=== PATIENT | female | born 1965 | race Asian ===

== ENCOUNTER 2024-09-30 11:00 | Outpatient (REF) | payer BC, SELFPAY ==
--- NOTE | ~2024-09-30 | XR_ITS ---
EXAMINATION: XR CHEST CLINICAL INFORMATION: R05.3 - Chronic cough COMPARISON: None available. TECHNIQUE: 2 views of the chest were obtained. FINDINGS: The cardiac, hilar, and mediastinal contours are normal. The lungs are clear bilaterally. There is no pneumothorax or pleural effusion. There is no focal osseous or soft tissue abnormality. XR/XR chest 2V IMPRESSION: No active pulmonary disease. Electronically signed by: Francisco Morrell MD 09/30/2024 01:12 PM EDT
[2024-09-30 11:58] LABS: MANUAL DIFF FLAG NO
[2024-09-30 13:23] LABS: Basophils Percent Auto 0.6 % (0-2); Eosinophils Absolute Auto 0.2 X10*3/uL (0.0-0.4); Eosinophils Percent Auto 2.4 % (0-4); Hematocrit 42.4 % (37.0-47.0); Hemoglobin 13.7 g/dl (12.0-16.0); Imm Gran Abs Auto 0.01 X10*3/uL (0.00-0.03); Imm Gran Pct Auto 0.1 % (0.0-0.4); Lymphocytes Absolute Auto 3.1 X10*3/uL (1.2-4.9); Lymphocytes Percent Auto 45.4 % (20-40); Mean Corpuscular HGB Conc 32.3 g/dl (31.0-35.0); Mean Corpuscular Hemoglobin 28.7 pg (27.0-33.0); Mean Corpuscular Volume 88.9 fL (80.0-98.0); Mean Platelet Volume 10.2 fL (9.4-12.3); Monocytes Absolute Auto 0.5 X10*3/uL (0.1-1.2); Neutrophils Percent Auto 44.5 % (45-73); Platelet Count 351 X10*3/uL (160-400); Red Blood Count 4.77 X10*6/uL (4.20-5.50); Red Cell Distribution Width 11.5 % (11.0-16.0); White Blood Count 6.8 X10*3/uL (4.8-10.8)
[2024-09-30 14:00] LABS: Erythrocyte Sedimentation Rate 12 MM/HR (0-20)
[2024-10-01 05:13] LABS: IgA 235 mg/dL (47-310); IgG 1453 mg/dL (600-1640); IgM 87 mg/dL (50-300)
[2024-10-01 20:53] LABS: Antibody to SS-A Antigen <1.0 NEG AI (<1.0 NEG); Antibody to SS-B Antigen 2.4 POS AI (<1.0 NEG)
[2024-10-01 22:54] LABS: Immunoglobulin E 186 kU/L (<OR=114)
[2024-10-07 12:28] LABS: Anti Nuclear Antibody Screen POSITIVE (NEGATIVE)
== END 2024-09-30 11:01 | disposition home or self-care (01) ==
LOC: HO.XRAY 11:00
PROVIDERS: PCP Family Medicine; Referring Provider Family Medicine; Visit Provider Hospitalist
DX: R05.3 Chronic cough (principal); J31.0 Chronic rhinitis; H60.549 Acute eczematoid otitis externa, unspecified ear
CPT/HCPCS: 36415; 71046; 82784; 82785; 85025; 85652; 86038; 86039; 86235

== ENCOUNTER 2024-09-30 11:00 | Outpatient (AMB) | payer BC, SELFPAY ==
--- NOTE | 2024-09-30 11:04 | MHC.OFFVIS ---
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 The patient is a 59 year woman with a known chronic cough for last few years. Patient states that the cough became more apparent when during the pandemic when she was trying not to cough. The cough at times is nonproductive but at times she does bring up some phlegm. She feels a fullness in the throat. Moderate severity. She does not really take any onjn-cbg-lahynch medications for it. She does not like to take medications unless she really has to. The patient did follow-up with ENT and she did undergo laryngoscopy and per report she was told that everything was okay and she did have some mucus but no medications for provided. The patient also follows up with Allergy and holistic therapy in [place] which she gets allergy shots. She knows she has allergies to animals and also some food allergies. On our evaluation she does have significant nasal congestion also has cobblestoning in the posterior pharynx. Likely upper airway cough syndrome. We did talk about nasal rinsing and nasal sprays to help with the symptoms and also using medications to stop the cough to help her break the cough cycle. In the meantime the patient does have what appears to be some eczema on both ears. She states that she was cleaning with very strong agent and she irritated them and now the itch a lot. It appears to be eczema. She does not have eczema elsewhere. On my evaluation the patient does not have any significant wheezing. Will go ahead and request blood work at this time to assess her immune system and also her allergy levels. The patient is willing to start nasal sprays and therapy and nasal rinsing. The patient should have an x-ray as well. Will follow up when she comes back from her trip abroad and if she has not issues prior to this she will call for an earlier assessment. [facility] Medical History (Updated 09/30/24 @ 21:10 by Maury Denton MD) Eczema of ear lobe Upper airway cough syndrome Chronic rhinitis Chronic cough Social History (Updated 09/30/24 @ 11:10 by Glo Diane CMA) Alcohol intake: current Alcohol intake frequency: holidays/special occasions only Patient Tobacco Use Status: Never used Tobacco Review of Systems Const Reports daytime sleepiness and Reports snoring Eyes Reports dry eyes ENT Reports nasal obstruction, Reports post nasal drip and Reports sore throat Card Denies chest pain Resp Reports cough, Reports snoring and Denies wheezing GI Reports no additional complaints Musc Reports no additional complaints Skin/Breast Reports rash Neuro Reports no additional complaints Gerson/Lymph Reports no additional complaints Aller/Immun Denies wheezing Physical Exam Vital Signs: Last Vital Signs Pulse 68 09/30/24 11:07 BP 124/68 09/30/24 11:07 Pulse Ox 100 09/30/24 11:07 Oxygen Delivery Method Room Air 09/30/24 11:07 BMI result Body Mass Index 23.6 Const General: comfortable HEENT Ears: Abnormal EAC present erythema and external ear abnormal Neck Neck: Yes supple Chest Chest palpation & inspection: normal inspection of the chest Resp Effort & Inspection: normal respiratory effort Auscultation: clear to auscultation bilaterally Cardio Heart sounds: S1 normal heart sound present and S2 normal heart sound present GI Palpation (GI): Soft to palpation Skin Rashes: rashes noted bilateral ear Extrem General: Yes no clubbing, cyanosis or edema Assessment & Plan Assessment & Plan (1) Chronic cough: Code(s): R05.3 - Chronic cough Category: Medical (2) Chronic rhinitis: Code(s): J31.0 - Chronic rhinitis Category: Medical (3) Upper airway cough syndrome: Code(s): R05.8 - Other specified cough Category: Medical (4) Eczema of ear lobe: Code(s): H60.549 - Acute eczematoid otitis externa, unspecified ear Category: Medical Plan Labs CXR sinus rinse (neilmed) Dymista nasal spray Tessalon pearls as needed for cough ear drops, needs to f/u with PCP F/U 2-3 months Orders: Orders Complete Blood Count Auto Diff Today J31.0 - Chronic rhinitis, R05.3 - Chronic cough, R05.8 - Other specified cough Immunoglobulin E Today J31.0 - Chronic rhinitis, R05.3 - Chronic cough, R05.8 - Other specified cough Immunoglobulins,IgG IgA IgM Today J31.0 - Chronic rhinitis, R05.3 - Chronic cough, R05.8 - Other specified cough Erythrocyte Sedimentation Rate Today J31.0 - Chronic rhinitis, R05.3 - Chronic cough, R05.8 - Other specified cough GAMALIEL Reflex Titer and Pattern Today J31.0 - Chronic rhinitis, R05.3 - Chronic cough, R05.8 - Other specified cough Sjogren's Antibodies Today J31.0 - Chronic rhinitis, R05.3 - Chronic cough, R05.8 - Other specified cough XR chest 2V Today R05.3 - Chronic cough Medications: New benzonatate 100 mg PO BID PRN 60 caps 2RF cough 30 days ciprofloxacin-dexamethasone 0.3-0.1 % 4 drps otic (ears) Q12H 7.5 mL 0RF 10 days azelastine-fluticasone 137-50 mcg/spray (Dymista) administer into each nostril 1 spray intranasal BID 23 grams 11RF Coding Level of Care Code New Pt Level 4 (10699) Diagnoses Chronic cough R05.3 Chronic rhinitis J31.0 Upper airway cough syndrome R05.8 Eczema of ear lobe H60.549 Time Spent (min) 40
[2024-09-30 11:07] VITALS: BP 124/68; PULSE 68; O2SAT 100; BMI 23.6
--- OUTSIDE RECORDS SUMMARY | 2024-09-30 12:13 | XMS_ITS | Continuity of Care Document ---
Author Organization [facility], Endocrinology, [facility] Address [address] [place] [address] Care Team Providers Care Solar Engineer Name Role Phone NEAL REYEZ Primary Care Provide r MADELYN MALDONADO Jewelry Engraver [phone] [facility] O rthopedist EFRAÍN NINO OTHER Assessment Encounter Date Assessment Date Assessment LastModified by Organization Details LastModified Time 09/25/2024 09/25/2024 59yo woman, with history of a kidney stones at age 27 and 35yy, kindly referred by Dr. Martin for osteoporosis at an early age, on alendronate since 03/02/23. 09/08/24 urine Ca 205mg/24h, urine cr 0.9g/24h, 05/28/24 pth 34, 25oh vit d 39, tsh 2, cr 0.7, Ca 9.6, Mg 1.7, 06/01/23 25oh vit d 23, 02/07/23 cr 0.7, Ca 9.2, tsh 2.1, 01/04/23 DXA described L1:4 t-score -3, z-score -1.9, right femoral neck t-score -2.8, which is consistent with osteoporosis. 24 hour urine calcium is normal. Normal Ca. Magnesium level is mildly low. Adding foods with more magnesium may help this. Almonds, spinach, cashews, and peanuts are excellent sources of magnesium. You can read more about foods that contain magnesium at the National Institutes of Health website (https://ods.od .nih.gov/factsh eets/Magnesium- HealthProfessio nal/#h3). If changing your diet is difficult, adding a supplement may help. TSH is normal and suggests you have adequate thyroid hormone. vitamin D stores are excellent. parathyroid hormone level is normal. I am impressed with her increased physical activity. Since 06/25, she she sees a show dog trainer and does weight bearing exercises, which she likes very much. She continues algaecal. She started cottage cheese once daily. I continue to recommend a medicine, which she declines. She does not trust Western medicine. She has a DXA scheduled 01/24/25 and will verify this. I would be happy to see her after this bone density to discuss further. [email or web address] Not available 09/25/2024 10:02:09 Plan of Treatment Reminders Order Date Submit Date Provider Last Modified By Organization Details Last Modified Time Details Appointments Follow Up, 2024 10:10A M eNri Pena MD Not available Not available Not available Mammog migue, Screen ing 2024 10:30A M [facility] Mammography Not available Not available Not available Lab vitami n D, 25-hyd elder, total, serum 2024 025 [facility], [address] [place] [address], [id number], 09/25/2024 10:02:43 renal functi on panel, serum 2024 025 [facility], [address] [place] [address], [id number], 09/25/2024 10:02:43 magnes ium, blood 2024 025 [facility], [address] [place] [address], [id number], 09/25/2024 10:02:43 Referral None record ed. Procedures None record ed. Surgeries None record ed. Imaging None record ed. Medication Orders None record ed. Patient TargetsNo targets recorded. Patient InstructionsNo instructions recorded. Reason for Referral None Reported. Problems Name Problem SNOMED Code Status Onset Date Resolution Date Notes Provider Name and Address Organization Details Recorded Time Otitis media 61573923 Completed 03/20/2013 Not Available [facility] 3 02:03:58 Abnormal findings on diagnost ic imaging of breast 290170144 Completed 06/29/2017 Removal Reason: benign Dara Drummond NP [address] [place] [address], [phone] , [facility] 8 09:20:55 Osteopor osis 35872267 Active 2023 Neal Elena MD [address] [place] [address], [phone] , [facility] 4 23:07:04 Family history of Cardiomy opathy 707711404 Active 2024 at risk cardiomy opathy due to Fhx mother has amyloido sism has hATTR gene; managed by [facility] cardiomy opathy clinc Neal Elena MD [address] [place] [address], [phone] , [facility] 5 10:29:46 Atopic dermatit is 31690766 Completed 200806/29/2017 Removal Reason: duplicat e Dara Drummond NP [address] [place] [address], [phone] , [facility] 8 09:20:41 Pain in throat 733478768 Completed 200703/20/2013 Not Available [facility] 3 02:03:09 Cough 48391868 Completed 200703/20/2013 Not Available [facility] 3 02:01:08 Common cold 06153845 Completed 200703/20/2013 Not Available [facility] 3 02:00:28 Nausea and vomiting 99496295 Completed 200603/20/2013 Not Available [facility] 3 02:03:06 Urinary tract infectio us disease 14276849 Completed 200703/20/2013 Not Available [facility] 3 02:01:58 Generali zed abdomina l pain 267754394 Completed 200503/20/2013 Not Available [facility] 3 02:02:06 Notes:family history of here ditary Transthyretin Amyloidosis Problem Notes None recorded. Procedures Surgical History Date Name Laterality Status Provider Name and Address Organization Details Recorded Time 08/28/19 21 Colonoscopy completed Neal Elena MD [address] [place] [address], [phone], [facility] 09/08/2020 15:59:10 05/22/19 21 prevention-cardio vascular risk reduction counseling completed Tash Lamar [facility] 05/22/2020 08:16:22 05/22/19 21 prevention-annual alcohol misuse screening completed Tash Lamar [facility] 05/22/2020 08:16:22 06/17/19 18 POC Strep Testing completed Lillian Longo CMA [facility] 06/17/2017 10:37:21 07/29/19 16 POC Strep Testing completed Florinda Echeverria [facility] 07/29/2015 11:27:19 Tonsillectomy completed Berta Terrell MD [address] [place] [address], [phone], [facility] 09/24/2013 11:00:28 Other (specify) completed Neal Elena MD [address] [place] [address], [phone], [facility] 05/22/2020 10:24:46 Imaging Results None recorded. Procedure Notes None recorded. Medical Equipment None Reported. Allergies Allergen ID Allergen Name Allergen Category Reaction Reaction Severity Criticality Documentation Date Start Date Code Code System Note Provider Name and Address Organization Details Recorded Time 903912 tree and shrub pollen environme nt,medica tion itching Not available Not available 01/03/2024 11767 UNK Neri Pena MD [address] [place], [place] [address] [place], [phone], [facility] 14:44:06 6931 procaine hydrochlo ride medicatio n other severe Not available 07/24/2008 92012 8 RxNorm SOB near synco pe Neal Elena MD [address] [place], [place] [address], [phone], [facility] 10/15/201 9 10:27:00 Medications Name Sig Start Date Stop Date Status Note LastModified by Organization Details LastModified Time prednison e 10 mg tablet 02/12 completed Not Available Not Available Not Available ofloxacin 0.3 % eye drops ADMINIST ER 1 DROP INTO RIGHT EYE FOUR TIMES DAILY. 01/02 completed Not Available Not Available Not Available benzonata te 200 mg capsule Take 1 capsule 3 times a day by oral route as needed for 10 days. 05/30 completed Not Available Not Available Not Available fluocinol one 0.01 % topical cream APPLY A THIN LAYER TO THE AFFECTED AREA(S) BY TOPICAL ROUTE TWICE A DAY NEEDED 02/21 completed Not Available Not Available Not Available alendrona te 70 mg tablet 70mg by mouth once weekly on an empty stomach first thing in the morning with at least 8 oz of water. Do not eat, drink, or take other medicati ons or suppleme nts for at least one-half hour after taking alendron ate. Stay upright (sitting or standing ) for at least 30 minutes after taking alendron ate to minimize the risk of reflux. Stop alendron ate if heartbur n, trouble swallowi ng, chest pain or reflux and then make an appointm ent to discuss this 01/02 completed Not started yet 06/01/23 as, never started this Not Available Not Available Not Available penicilli n V potassium 500 mg tablet TK 1 T PO Q 12 H FOR 10 DAYS active Not Available Not Available No t Available amoxicill in 500 mg tablet Take 2 tablets twice a day by oral route for 7 days. 04/27 completed Not Available Not Available Not Available lidocaine -prilocai ne 2.5 %-2.5 % topical cream 06/01 completed Not Available Not Available Not Available diphenhyd ramine-zi nc acetate 2 %-0.1 % topical cream Apply 1 applicat ion 3 times a day by topical route as needed for 30 days. 2013 active Not Available Not Available Not Avai lable alprazola m 0.25 mg tablet 06/01 completed Not Available Not Available Not Available prednisol one acetate 1 % eye drops,gerald pension ADMINIST ER 1 DROP INTO RIGHT EYE FOUR TIMES DAILY. 01/02 completed Not Available Not Available Not Available cephalexi n 500 mg capsule Take 1 capsule twice a day by oral route. 02/12 completed Not Available Not Available Not Available triamcino lone acetonide 0.1 % topical ointment 02/12 completed Not Available Not Available Not Available clotrimaz ole-betam ethasone 1 %-0.05 % topical cream PLEASE SEE ATTACHED FOR DETAILED DIRECTIO NS 01/02 completed Not Available Not Available Not Available lidocaine 5 % topical patch 02/12 completed Not Available Not Available Not Available metronida zole 0.75 % topical cream APPLY A THIN LAYER TO THE AFFECTED AREA(S) BY TOPICAL ROUTE 2 TIMES PER DAY IN THE MORNING AND EVENING 02/12 completed Not Available Not Available Not Available omeprazol e 20 mg capsule,d elayed release TAKE 1 CAPSULE BY MOUTH EVERY DAY FOR 14 DAYS 05/30 completed Not Available Not Available Not Available ibuprofen 600 mg tablet 02/12 completed Not Available Not Available Not Available doxycycli ne hyclate 100 mg tablet 06/01 completed Not Available Not Available Not Available ipratropi um bromide 21 mcg (0.03 %) nasal spray SPRAY 2 SPRAYS IN EACH NOSTRIL 1-3 TIMES A DAY 01/02 completed Not Available Not Available Not Available loratadin e 10 mg tablet TAKE 1 TABLET BY MOUTH EVERY DAY NEEDED active Not Available Not Available No t Available naproxen 500 mg tablet TAKE 1 TABLET BY MOUTH TWICE A DAY WITH MEALS FOR 7 DAYS 03/02 completed Not taking 03/02/23 JIMI Not Available Not Available Not Available clindamyc in 1 % lotion APPLY A THIN LAYER TO THE LEFT LOWER LEG LESION BY TOPICAL ROUTE 2 TIMES PER DAY FOR 2-3 WEEKS 09/25 completed Not Available Not Available Not Available cyclobenz aprine 5 mg tablet 02/12 completed Not Available Not Available Not Available multivita min active Not Available Not Available Not Available Plenvu 140 gram-9 gram-5.2 gram powder packs 05/28 completed Not Available Not Available Not Available Flucelvax Quad (PF) 60 mcg (15 mcg x 4)/0.5 mL IM syringe PHARMACY ADMINIST ERED 05/22 completed Not Available Not Available Not Available Vitals Date Recorded Body height Body mass index (BMI) Body weight Heart rate Systolic blood pressure Diastolic blood pressure Provider Name and Address Organization Details Last Updated DateTime 5 158.12 cm 24.1 kg/m2 75271.3 5 g 66 /min 125 mm[Hg] 85 mm[Hg] Denice Resendiz LPN [facility] 5 09:39:49 Social History Question Answer Notes LastModified by Organizat ion Details LastModified Time Tobacco Smoking Status Never Smoker Not Available [facility] 03/17/2011 04:53:49 Do You Have An Advance Directive? No 7 Information not available 03/17/2011 What Is Your Level Of Caffeine Consumption? Occasional Green Tea [email or web address] Information not available 09/24/2013 How Much Tobacco Do You Chew? None 7 Information not available 03/17/2011 What Type Of Diet Are You Following? REGULAR 7 Information not available 03/17/2011 Which Illicit Or Recreational Drugs Have You Used? Denies Information not available 10/01/2014 Education Post Graduate Information not available 10/01/2014 How Many Days In The Past Year Have You Had A Heavy Drinking Consumption (4+ Female, 5+ Male)? 0 [email or web address] Information not available 10/01/2014 Are There Any Guns Present In Your Home? No 7 Information not available 03/17/2011 Live Alone Or With Others? With Others With Family Information not available 10/01/2014 Patient Has Health Care Proxy Signed And In Chart Yes Information not available 10/01/2014 Marital Status Gil Since 2000 Information not available 10/01/2014 Mosquito Repellent Used Routinely Yes Sometimes Information not available 06/29/2017 What Was The Date Of Your Most Recent Tobacco Screening? 06/04/2024 [email or web address] Information not available 06/04/2024 How Many Children Do You Have? 3 Twins - Boy And Girl- In 2006, Son In 2004 [email or web address] Information not available 09/29/2011 Seat Belts Used Routinely Yes 7 Information not available 03/17/2011 Are You Sexually Active? Yes 7 Information not available 03/17/2011 Smoke Alarm In Home Yes 7 Information not available 03/17/2011 General Stress Level Low Information not available 06/29/2017 Do You Use Sunscreen Routinely? Yes Information not available 03/17/2011 Sex: Female Functional Status Question Answer Note LastModified by Organizat ion Details LastModified Time Do you use any illicit or recreational drugs? No Information not available 01/03/2024 Do you or have you ever used any other forms of tobacco or nicotine? No astosz Information not available 02/21/2022 What is your level of alcohol consumption? 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 Family History Relationship Description Onset Age of this Age Resolved Age Notes LastModified by Organization Details LastModified Time Father Malignant neoplasm of prostate [email or web address] Not available 2015 13:25:24 Mother Essential hypertension [email or web address] Not available 10:59:35 Mother Amyloidosis 74 transt hyreti n heredi tary type [email or web address] Not available 05/30/2022 10:59:35 Notes:no hyperlipidemia, DM, [place], breast CA, colon CA, mother suddenly September 2022, while visiting, had a lot of fluid around her heart Medical History Condition Response NEUROLOGIC N EYE N RENAL / GENITOURINARY N HEMATOLOGIC N INFECTIOUS DISEASE N ENT N GASTROINTESTINAL N METABOLIC N SKIN Y MUSCULOSKELETAL N ENDOCRINE N CARDIOVASCULAR N PSYCHIATRIC N CANCER N RESPIRATORY N Osteoporosis Y Gynecological History Statement/Question Response Date of LMP 06/14/2017 Menses Monthly Y HPV N N Hysterectomy N History of Abnormal Pap Y Current Control Method None N Obstetrics History GPAL:G 0 P 0 0 0 0 Immunizations Vaccine Type Date Status Note Provider Ascencion weathers and Address Organization Details Recorded Time Tdap 9 completed Not Available [facility] 05/18/2019 02:15:15 Td (adult), 2 Lf tetanus toxoid, preservative free, adsorbed 9 completed Not Available [facility] 05/18/2019 02:24:08 Influenza, split virus, quadrivalent, preservative 0 [facility] 10:59:35 Influenza, split virus, quadrivalent, PF 3 completed Jayme Frederick MD [address] [place] [address], [phone], [facility] 03/02/2023 14:04:55 Influenza, split virus, trivalent, PF 5 completed Neal Elena MD [address] [place] [address], [phone], [facility] 06/05/2024 14:03:55 COVID-19, mRNA, LNP-S, PF, 30 mcg/0.3 mL dose 1 [facility]2021 14:12:03 COVID-19, mRNA, LNP-S, PF, 30 mcg/0.3 mL dose 1 [facility] 05/28[facility]2021 14:12:35 COVID-19, mRNA, LNP-S, PF, 30 mcg/0.3 mL dose 1 [facility] 05/28/2021 14:13:08 COVID-19, mRNA, LNP-S, PF, 30 mcg/0.3 mL dose 2 completed [facility] 10/08/2021 13:40:01 Influenza, split virus, quadrivalent, preservative 2 completed [facility] 05/30/2022 10:59:35 Past Encounters Encounter ID Performer Location Encounter Start Date Encounter Closed Date Diagnosis/Indication Diagnosis SNOMED-CT Code Diagnosis ICD10 Code Diagnosis Note [id number] Neri Pena MD Endocrino log, [address] [address] 09/25/2024 09:26:49 09/25/2024 10:28:02 Osteoporosis 35836976 M81.0 -balance is good-no past fracture-n ot much dairy due to allergy-to fu, bok tomy-calci um supplement algaecal, 360mg in 2 tabs 2x/d by mouth-you want to see how calcium supplement s work and then consider options in a year or two-you walk a lot-light weight wearing 2h daily -I recommend a bone medicine-y ou do not prefer a medicine at this time-you prefer to see if calcium supplement s help first 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 -limits dairy intake Hypomagnesemia 589092155 E83.42 -increase magnesium in diet Health Concerns Section Related Observation LastModified by Organization Detai ls LastModified Time None Recorded Concern Status LastModified by Organization Details LastModified Time None Recorded Payers Encounter Date Sequence Insurance Name Policy Number Policy Robledo Covered Member ID Robledo Member ID Guarantor Name 09/25/2024 1 [facility] [employer] PREFERRED (PPO) [id number] Gil Montano [id number] Britney Montano Notes Date Note Type Note Provider Name and Address Organization Details Recorded Time 09/25/2024 text/html Follow-Up: osteoporosisissu es;labs 05-28-24dexa 01-24-23 Since 06/25, she she sees a show dog trainer and do weight bearing exercises, which she likes very much. She continues algaecal. She started cottage cheese once daily. no fall fracture + kidney stone in 20s not lately no alcohol water pill ppi / prazoles for GERD Neri Pena MD [address] [place] [address], [phone], [facility] 09/25/2024 10:04:22 OBGyn Episode No OBEpisode recorded.
== END 2024-09-30 11:43 | disposition home or self-care (01) ==
LOC: HO.HPS 11:00
PROVIDERS: PCP Family Medicine; Referring Provider Family Medicine; Visit Provider Hospitalist
DX: R05.3 Chronic cough (principal); J31.0 Chronic rhinitis; R05.8 Other specified cough; H60.543 Acute eczematoid otitis externa, bilateral
CPT/HCPCS: 99204

== ENCOUNTER → 2024-09-30 11:58 | Outpatient (BNV) | payer BC, SELFPAY | PROVIDERS: PCP Family Medicine; Referring Provider Family Medicine; Visit Provider Radiology Diagnostic Radiology | DX: R05.3 Chronic cough (principal) | CPT/HCPCS: 71046 ==

== ENCOUNTER 2025-01-29 11:13 | Outpatient (AMB) | payer BC, SELFPAY ==
[2025-01-29 11:14] VITALS: BP 138/74; PULSE 73; O2SAT 99; BMI 23.6
--- NOTE | 2025-01-29 11:14 | A.OFFVIS_ITS ---
Vital Signs 01/29/25 11:14 Height 5 ft 3 in Weight 133 lb 6.075 oz BMI 23.6 BP 138/74 Blood Pressure Location Lt brachial Position Sitting Pulse 73 Pulse Source Pulse Oximeter Pulse Oximetry (%) 99 Oxygen Delivery Method Room Air Intake Visit Reasons: cough Dietary Worker Required: No Accompanied by: Self / Same As Patient Allergies procaine (From Novocain) Allergy (Intermediate, Verified 01/29/25 11:17) Dizziness HPI Comments Details: The patient is a 59 year woman with a known chronic cough for last few years. Patient states that the cough became more apparent when during the pandemic when she was trying not to cough. The cough at times is nonproductive but at times she does bring up some phlegm. She feels a fullness in the throat. Moderate severity. She does not really take any uboh-ofm-wkjksyd medications for it. She does not like to take medications unless she really has to. The patient did follow-up with ENT and she did undergo laryngoscopy and per report she was told that everything was okay and she did have some mucus but no medications for pr ovided. The patient also follows up with Allergy and holistic therapy in [place] which she gets allergy shots. She knows she has allergies to animals and also some food allergies. On our evaluation she does have significant nasal congestion also has cobblestoning in the posterior pharynx. Likely upper airway cough syndrome. We did talk about nasal rinsing and nasal sprays to help with the symptoms and also using medications to stop the cough to help her break the cough cycle. In the meantime the patient does have what appears to be some eczema on both ears. She states that she was cleaning with very strong agent and she irritated them and now the itch a lot. It appears to be eczema. She does not have eczema elsewhere. On my evaluation the patient does not have any significant wheezing. Will go ahead and request blood work at this time to assess her immune system and also her allergy levels. The patient is willing to start nasal sprays and therapy and nasal rinsing. The patient should have an x- ray as well. Will follow up when she comes back from her trip abroad and if she has not issues prior to this she will call for an earlier assessment. 01/29/2025 the patient is here for pulmonary follow-up visit. The patient is no better. She is still complaining of postnasal drip cough and fullness of the throat. Moderate severity. She did try the Dymista but it cause drowsiness. She also try the Bentson Ken and also cause drowsiness so she stopped them. We did review her blood work. Her IgE continues to be elevated 186. She continues to get allergy shots but is not likely covering her underlying allergies that is causing her to have worsening nasal congestion. In addition to that the patient did have a positive SSB suggesting Sjogren's. Her GAMALIEL was slightly elevated. She does have dry eyes it is not clear if her ongoing cough and throat irritation could be related to ongoing Sjogren's. Therefore will go ahead and refer her to Rheumatology so they can further address that. She does have morning time achiness primarily in the hands. Did consider Plaquenil as an option to see if her symptoms improve. Will have to wait and see how she response to additional therapies that will be provided in the meantime. She does have underlying allergies and she believes is related to foods. Will go ahead and do some allergy testing for foods and also will do some respiratory allergy panel as well. The patient follow-up in 3-4 months in the meantime she will start the fluticasone nasal spray and also provide her a small dose of Sudafed that she can try for nasal decongestion. Hopefully does not drive her too much specially with the suspicion of Sjogren's. [facility] Medical History (Updated 01/29/25 @ 22:15 by Maury Denton MD) Sjogren's disease Eczema of ear lobe Upper airway cough syndrome Chronic rhinitis Chronic cough Social History Alcohol intake: current Alcohol intake frequency: holidays/special occasions only Patient Tobacco Use Status: Never used Tobacco Review of Systems Const Reports daytime sleepiness and Reports snoring Eyes Reports dry eyes ENT Reports nasal obstruction, Reports post nasal drip and Reports sore throat Card Denies chest pain Resp Reports cough, Reports snoring and Denies wheezing GI Reports no additional complaints Musc Reports myalgias and Reports arthralgias Skin/Breast Reports rash Neuro Reports no additional complaints Gerson/Lymph Reports no additional complaints Aller/Immun Denies wheezing Physical Exam Vital Signs: Last Vital Signs Pulse 73 01/29/25 11:14 BP 138/74 01/29/25 11:14 Pulse Ox 99 10/01/25 11:14 Oxygen Delivery Method Room Air 01/29/25 11:14 BMI result Body Mass Index 23.6 Const General: comfortable HEENT Ears: Abnormal EAC present erythema and external ear abnormal Neck Neck: Yes supple Chest Chest palpation & inspection: normal inspection of the chest Resp Effort & Inspection: normal respiratory effort Auscultation: clear to auscultation bilaterally Cardio Heart sounds: S1 normal heart sound present and S2 normal heart sound present GI Palpation (GI): Soft to palpation Skin Rashes: rashes noted Extrem General: Yes no clubbing, cyanosis or edema Assessment & Plan Assessment & Plan (1) Chronic cough: Code(s): R05.3 - Chronic cough Category: Medical (2) Chronic rhinitis: Code(s): J31.0 - Chronic rhinitis Category: Medical (3) Upper airway cough syndrome: Code(s): R05.8 - Other specified cough Category: Medical (4) Eczema of ear lobe: Code(s): H60.549 - Acute eczematoid otitis externa, unspecified ear Category: Medical (5) Allergy: Code(s): T78.40XA - Allergy, unspecified, initial encounter Qualifiers: Encounter type: subsequent encounter Qualified Code(s): T78.40XD - Allergy, unspecified, subsequent encounter (6) Sjogren's disease: Code(s): M35.00 - Sjogren syndrome, unspecified Category: Medical Qualifiers: Sjogren organ or system involvement: unspecified organ involvement Qualified Code(s): M35.00 - Sjogren syndrome, unspecified Plan Labs/allergy testing sinus rinse (neilmed) add Budesonide x 1 month start Fluticasone nasal spray Pseudophed as needed for nasal congestion and post nasal drip Does not tolerate any antihistamines due to drowsiness Referral to Rheumatology. She does have allergies with an elevated IgE, but still need to consider that her whole presentation could be related to the +SSB F/U 3-4 months Orders: Orders Rast Allergen Today J31.0 - Chronic rhinitis, R05.3 - Chronic cough, T78.40XA - Allergy, unspecified, initial encounter Referrals Rheumatology Referral M35.00 - Sjogren syndrome, unspecified Medications: New pseudoephedrine HCl DNExceed 4 doses/24h 60 mg PO Q8H PRN 60 tabs 2RF nasal congestion 30 days fluticasone propionate 50 mcg/actuation 2 sprays intranasal DAILY 15.8 mL 11RF 30 days J31.0 - Chronic rhinitis Discontinued azelastine-fluticasone 137-50 mcg/spray (Dymista) administer into each nostril Discontinued Reason: Doctor's Order 1 spray intranasal BID 23 grams 11RF Coding Level of Care Code Est Pt Level 4 (56079) Complex EM visit Add On G2211 Diagnoses Chronic cough R05.3 Chronic rhinitis J31.0 Upper airway cough syndrome R05.8 Eczema of ear lobe H60.549 Allergy, subsequent encounter T78.40XD Encounter type: subsequent encounter Sjogren's syndrome, with unspecified organ involvement M35.00 Sjogren organ or system involvement: unspecified organ involvement Time Spent (min) 18
--- OUTSIDE RECORDS SUMMARY | 2025-01-29 12:50 | XMS_ITS | Encounter Summary ---
Author Organization [facility] Address [address] [facility] [address] [place] [phone] Phone Care Team Providers Care Canvas Baster Name Role Phone Neal Diop MD Primary Care Prov ider Gricel Jara MBBS Unavailable [phone] Neal Diop MD Primary Care Prov ider Encounter Details Date Type Department Care Team (Late st Contact Info) Description 06/11/2023 Procedure Pass [facility], Ct Scan - [facility] [address] [place] [address] Social History Tobacco Use Types Packs/Day Years Used Date Smoking Tobacco: Never Smokeless Tobacco: Never Alcohol Use Standard Drinks/Week Comments Never 0 (1 standard drink = 0.6 oz pur e alcohol) Education Answer Date Recorded Are you interested in more education? Not on suhail e 08/26/2022 Are you concerned about learning? Not on file 08/26/2022 No 08/26/2022 No 08/26/2022 Digital Access Answer Date Recorded No 09/24/2022 No 09/24/2022 Reliable internet access at home? Not on file 09/24/2022 Device with a working camera? Not on file Comments No Sex and Gender Information Value Date Recorded Sex Assigned at Female 09/17/2018 12:22 PM EDT Legal Sex Female 9:38 PM EDT Gender Identity Female 09/17/2018 12:22 PM EDT Sexual Orientation Straight 09/17/2018 12 :22 PM EDT documented as of this encounter Plan of Treatment Upcoming Encounters Date Type Department Care Team (Late st Contact Info) Description 2026 2:00 PM EST Telemedicine [facility] [place] [address] [facility], 5th Floor, [address] [place] [address] Pj Tinoco MD, MPH [address] [facility] [address] [place] [address] [email or web address] documented as of this encounter Visit Diagnoses Not on filedocumented in this encounter Care Teams Canvas Baster Relationship Specialty Start Date End Date Neal Diop MD [email or web address] PCP - General Family Medicine 08/27/20 4 Neal Diop MD [address] [place] [id number] [email or web address] PCP - General Family Medicine 09/13/23 Gricel Jara MBBS [email or web address] Medical Oncology 08/16/23 documented as of this encounter Additional Source Comments The information contained in this document represents components of the legal health record. It is not the complete legal health record.[facility]
--- OUTSIDE RECORDS SUMMARY | 2025-01-29 12:50 | XMS_ITS | Clinical Summary ---
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 DISCUSSION: I discussed overall impression, differential diagnosis, various types of amyloidosis and further evaluation in this regard. Patient's mother from this condition. Patient herself does not have any signs or symptoms pointing towards an underlying amyloidosis although it is necessary that she is ruled out for this disease. I recommended that she undergoes genetic testing as well as screening for plasma cell disorders. Patient asked several questions in this regard which were answered to her satisfaction. RECOMMENDATIONS: Amyloidosis/multiple myeloma screening blood work Patient will be referred to genetic counselor for genetic testing for hereditary Transthyretin Amyloidosis Follow-up in 5 to 6 weeks Thank you very much for allowing to participate in this patient's care Encounters Date Type Department Care Team Description 01/07/2025 2:00 PM EDT Office Visit [facility] Cardiology [address], [address] [place] [address] Pj Tinoco MD, MPH At risk for cardiomyopathy (Primary Dx); Family history of amyloidosis; Family history of restrictive cardiomyopathy; Autosomal variant form of transthyretin 01/07/2025 Orders Only [facility] Cardiology [address], [address] [place] [address] Donna Hernandez Family history of amyloidosis (Primary Dx) 01/06/2025 9:58 AM EDT - 01/06/2025 11:59 PM EDT Hospital Encounter [facility], Bone Density - [facility] [address] [place] [address] Isabel Pena MD Discharge Disposition: Home or Self Care from Last 3 Months Family History Medical History Relation Comments No Known Problems Daughter Prostate cancer Father Hypertension Maternal Grandmother Pacemaker Maternal Grandmother Amyloidosis Mother [id number], SOB, f atigue, neuropathy Syncope Mother syncope 2x, fell back on head -> d. within 3 hours. ER said fluid around heart , no autopsy Cancer Paternal Grandfather Cancer Paternal Grandmother No Known Problems Sister no genetic bonnie ting No Known Problems Son 1 No Known Problems Son 2 Relation Status Comments Daughter Alive Father Alive Maternal Aunt 1 Alive Maternal Aunt 2 Alive Maternal Grandfather (Age 85) Maternal Grandmother (Age mid 80s) Maternal Uncle Alive Mother (Age 79) Paternal Grandfather (Age 80s) Paternal Grandmother (Age 80s) Sister Alive Son 1 Alive Son 2 Alive Unspecified 1 Alive 7 aunts/uncles: no info Unspecified 2 Alive Social History Tobacco Use Types Packs/Day Years [...] Orientation Straight 09/17/2018 12 :22 PM EDT Last Filed Vital Signs Vital Sign Reading Time Taken Comments Blood Pressure 132/76 01/07/2025 2:05 PM EDT Pulse 75 01/07/2025 2:05 PM EDT Temperature 35.9 C (96.6 F) 08/27/2020 12:28 PM EDT Respiratory Rate 15 08/27/2020 12:42 PM EDT Oxygen Saturation 100% 08/27/2020 12:42 PM EDT Inhaled Oxygen Concentration - - Weight 59 kg (130 lb) 01/07/2025 2:05 PM EDT Height 160 cm (5' 3 ) 09/17/2018 12:20 PM EDT Body Mass Index 23.03 09/17/2018 12:20 PM EDT Plan of Treatment Upcoming Encounters Date Type Department Care Team (Late st Contact Info) Description 2026 2:00 PM EST Telemedicine [facility] Heart Failure & Transplantation [address], [address], [address] [place] [address] Pj Tinoco MD, MPH [address] [place] [address] [email or web address] Health Maintenance Due Date Last Done Comments DEPRESSION SCREENING 1979 HEPATITIS C SCREENING 07/08/1985 HIV ONE-TIME SCREENING (18-65 YEARS) 07/08/1985 MAMMOGRAM 2007 LIPID PANEL 06/02/2010 06/02/2005 COLOGUARD 07/08/2012 FIT TEST 07/08/2012 FOBT 07/08/2012 SIGMOIDOSCOPY 07/08/2012 VIRTUAL COLONOSCOPY 07/08/2012 PNEUMOCOCCAL VACCINES (50+ years) (1 of 1 - PCV) 07/08/2017 ZOSTER VACCINES (2 of 2) 08/21/2024 06/26/2024 INFLUENZA VACCINE (#1) 2024 , 03/02/2023, 02/28/2022, Additional history exists COVID-19 VACCINE (5 - 2024- season) 2024 10/06/2021, 04/12/2021, 08/17/2020, Additional history exists PAP SMEAR 05/30/2025 05/30/2022, 06/29/2017 Adult Td,Tdap Booster 02/12/2029 02/12/2019, 009 COLONOSCOPY 08/27/2030 08/27/2020 COLORECTAL CANCER SCREENING 08/27/2030 SMOKING STATUS SCREENING (Once After 26 Yrs) Completed 08/27/2020 HEPATITIS A VACCINES Aged Out No long er eligible based on patient's age to complete this topic HIB VACCINES Aged Out No longer eligi ble based on patient's age to complete this topic MENINGOCOCCAL VACCINES (ACWY) Aged Out No longer eligible based on patient's age to complete this topic MENINGOCOCCAL VACCINES (B) Aged Out N o longer eligible based on patient's age to complete this topic Medical Devices Not on file Procedures Procedure Name Priority Date/Time Associated Diagnosis Comments ECG 12-LEAD Routine 01/07/2025 2:03 PM EDT Family history of amyloidosis BD DXA AXIAL (SPINE) WITH HIP Routine 01/06/2025 10:18 AM EDT Age-related osteoporosis without current pathological fracture PAP TEST Routine 05/30/2022 12:00 AM EST ENDOSCOPY, COLON 08/27/2020 12:0 3 PM EDT from Last 3 Months or Most Recently Relevant to Health Maintenance Results * ECG 12-LEAD (01/07/2025 2:03 PM EDT) Systolic Blood Pressure [facility] Diastolic Blood Pressure [facility] Ventricular Rate EKG/MIN 75 BPM [facility] Atrial Rate 75 BPM [facility] MA Interval 164 ms [facility] QRS Duration 86 ms [facility] QT Interval 414 ms [facility] QTC Interval 462 ms [facility] P [place] 31 degrees [facility] R Wave [place] 43 degrees [facility] T Wave [place] 45 degrees [facility] 01/07/2025 2:03 PM EDT 01/07/2025 2:05 PM EDT Narrative [facility] - 01/07/2025 2:05 PM EDT NORMAL SINUS RHYTHM MINOR NONSPECIFIC ST SEGMENT AND T WAVE ABNORMALITIES NO PREVIOUS ECGS AVAILABLE us Pj Tinoco MD, MPH ECG ORDERABLES Final Result [facility] * BD DXA AXIAL (SPINE) WITH HIP (01/06/2025 10:18 AM EDT) Anatomical Region Laterality Modality Bone Density Bone Density 01/06/2025 10:1 8 AM EDT Impressions 01/07/2025 10:06 AM EDT Interpretation: Osteoporosis. Narrative 01/07/2025 10:06 AM EDT Referred By: ISABEL PENA Indications: Osteoporosis Scanner: Yap A with serial# of [id number] located at [facility] Bone Density Scan (DXA) 01/06/25 Details of prior DXA scans are available by clicking View Full Report BMD T- Z- Skeletal Site gm/cm2 score score BMD Change Since Prior Scan ------ ----- ----- PA Spine (L1-L4) 0.733 -2.90 -1.60 0.016 (stable) since 01/24/2023 Total Hip (Right) 0.695 -2.00 -1.20 0.019 (stable) since 01/24/2023 Femoral Neck (Right) 0.538 -2.80 -1.60 0.003 (stable) since 01/24/2023 ------ ----- ----- * Denotes significant change when >= 0.022 g/cm2 for the spine, 0.027 g/cm2 for the total hip, 0.029 g/cm2 for the femoral neck. Interpretation: Osteoporosis. Technical Quality: Imaging of all sites was of adequate quality. FRAX: A FRAX(r) score is not provided because the patient has osteoporosis, which is generally an indication for treatment. Reviewed By: Vladimir Ya MD on 01/07/2025 10:06:40 Additional Information: -World Health Organization criteria classify adults based on lowest T-score at PA spine, hip or forearm: Normal (T-score >= -1.0), Osteopenia (T-score between -1 and -2.5), or Osteoporosis (T-score <= -2.5). At [facility], T-scores are compared to peak bone density of a young white gender matched reference population. - For premenopausal women and men under the age of 50, Z-scores (comparison to age, gender, and ethnicity matched reference population) are used: Above expected range for age (Z-score >= 2.0), Within expected range of age (Z-score 1.9 to -1.9), or Below expected range for age (Z-score <= -2.0). - The Bone Health and Osteoporosis Foundation recommends that treatment be considered in men aged more than 50 years and in postmenopausal women with ANY of the following: Prior hip or vertebral fractures; T-score of <= -2.5 at the PA spine or hip; or 10 year fracture probability by FRAX of >= 3% for the hip or >= 20% for major osteoporotic fracture. - The FRAX algorithm (https://www.vanita.ac.uk/FRAX/tool.aspx) is designed to predict 10-year fracture risk in treatment-naive adults between the ages of 40 and 90. It is not intended to be used in those receiving pharmacologic osteoporosis treatment. - The TBS is derived from the texture of the DXA spine image and has been shown to be related to bone microarchitecture and fracture risk. This data provides information independent of BMD value. It adds to fracture risk assessment with a FRAX adjusted for TBS score. If your patient had a TBS and qualified for a FRAX score, the reported FRAX score has been adjusted for TBS. TBS Score Interpretation 1.350 and greater Normal bone microarchitecture 1.200 to 1.350 Partially degraded bone microarchitecture 1.200 and less Degraded bone microarchitecture - Including race/ethnicity in the generation of T- or Z-scores or in the FRAX calculation is complicated, and currently undergoing active review to ensure that we can give patients the best information on their risk of fracture. - Some prior studies may not be compatible with our comparison software. - Click on View Full Report to see subsequent pages with images and prior bone density results. Procedure Note Vladimir Ya MD - 01/07/2025 Referred By: ISABEL PENA Indications: Osteoporosis Scanner: Yap A with serial# of [id number] located at [facility] Bone Density Scan (DXA) 01/06/25 Details of prior DXA scans are available by clicking View Full Report BMD T- Z- Skeletal Site gm/cm2 score score BMD Change Since Prior Scan ------ ----- PA Spine (L1-L4) 0.733 -2.90 -1.60 0.016 (stable) since01/24/2023 Total Hip (Right) 0.695 -2.00 -1.20 0.019 (stable) since01/24/2023 Femoral Neck (Right) 0.538 -2.80 -1.60 0.003 (stable) since01/24/2023 ------ ----- * Denotes significant change when >= 0.022 g/cm2 for the spine, 0.027g/cm2 for the total hip, 0.029 g/cm2 for the femoral neck. Interpretation: Osteoporosis. Technical Quality: Imaging of all sites was of adequate quality. FRAX: A FRAX(r) score is not provided because the patient hasosteoporosis, which is generally an indication for treatment. Reviewed By: Vladimir Ya MD on 01/07/2025 10:06:40 Additional Information: -World Health Organization criteria classify adults based on lowestT-score at PA spine, hip or forearm: Normal (T-score >= -1.0), Osteopenia (T-score between -1 and -2.5), or Osteoporosis (T-score <= -2.5). At [facility], T-scores are compared to peak bone density of a young white gender matched reference population. - For premenopausal women and men under the age of 50, Z-scores(comparison to age, gender, and ethnicity matched reference population) are used:Above expected range for age (Z-score >= 2.0), Within expected range of age (Z-score 1.9 to -1.9), or Below expected range for age (Z-score <= -2.0). - The Bone Health and Osteoporosis Foundation recommends that treatment be considered in men aged more than 50 years and in postmenopausal women with ANY of the following: Prior hip or vertebral fractures; T-score of <= -2.5 at the PA spine or hip; or 10 year fracture probability by FRAX of >= 3%for the hip or >= 20% for major osteoporotic fracture. - The FRAX algorithm (https://www.vanita.ac.uk/FRAX/tool.aspx) is designed to predict 10-year fracture risk in treatment-naive adultsbetween the ages of 40 and 90. It is not intended to be used in those receiving pharmacologic osteoporosis treatment. - The TBS is derived from the texture of the DXA spine image and has been shown to be related to bone microarchitecture and fracture risk. This data provides information independent of BMD value. It adds to fracture risk assessment with a FRAX adjusted for TBS score. If your patient had a TBSand qualified for a FRAX score, the reported FRAX score has been adjusted for TBS. TBS Score Interpretation 1.350 and greater Normal bone microarchitecture 1.200 to 1.350 Partially degraded bone microarchitecture 1.200 and less Degraded bone microarchitecture - Including race/ethnicity in the generation of T- or Z-scores or in the FRAX calculation is complicated, and currently undergoing active review to ensure that we can give patients the best information on their risk of fracture. - Some prior studies may not be compatible with our comparison software. - Click on View Full Report to see subsequent pages with images andprior bone density results. IMPRESSION: Interpretation: Osteoporosis. us Isabel Pena MD IMG BD BONE DENSITY DEXA Fi nal Result * Pap Test (05/30/2022 12:00 AM EST) 05/30/2022 05/31/2022 9:1 7 AM EST Narrative SEE NARRATIVE - 06/02/2022 2:29 [place] [address] Digester Hand: Patrica Cameron MD BACTERIOLOGIST INDUSTRIAL Cytology Report FINAL DIAGNOSIS A. PAP SMEAR (SUREPATH) CE: SPECIMEN ADEQUACY: Satisfactory for evaluation; transformation zone present. INTERPRETATION: NEGATIVE FOR INTRAEPITHELIAL LESION OR MALIGNANCY. Electronically Signed Out By: ARLEY Hearn(ASCP) The Pap test is a screening test primarily for squamous cancers and precursors and has associated false-negative and false-positive results. New technologies such as liquid-based preparations may decrease but will not eliminate all false-negative results. Regular sampling and follow-up of unexplained clinical signs and symptoms are recommended to minimize false negative results. PROCEDURES/ADDENDA HPV Testing (Requested) Ordered Date: 05/31/2022 A. PAP SMEAR (SUREPATH) CE: Human Papilloma Virus Test NEGATIVE for high-risk Human Papilloma Virus types 16, 18, 45 and the Other high risk probe set (Includes 31, 33, 35, 39, 51, 52, 56, 58, 59, 66, 68) Note: Testing performed by [employer] Onclarity HR-HPV analysis. Clinical correlation is advised. This HPV test was performed at [facility], [address] [place] [address]. This test has been FDA approved for SurePath cervical cytology specimens. The accuracy and precision of this test for all other specimen sources has been verified in the Cytopathology Laboratory of the [facility] and has not been cleared or approved by the U.S. Food and Drug Administration. Clinical correlation is advised. CLINICAL HISTORY Date of Last Menstrual Period: Not Provided Menstrual History: Unknown Other Clinical Conditions: Screening Pap SPECIMEN SOURCE A: PAP SMEAR (SUREPATH) CE Patient Name: VANDANA MCMULLEN : 1965 (Age: 56) Sex: F Institution: [facility] Location: [facility] Date of Collection: 05/30/2022 Date of Reported: 06/02/2022 14:29 Results to: Neal Conley Neal Conley MD CYTOLOGY ORDERABLE S Final Result SEE NARRATIVE * ENDOSCOPY, COLON (08/27/2020 12:03 PM EDT) Narrative Transcriptions Don Moraes MD - 08/27/2020 12:03 PM EDT Patient Name: Vandana Mcmullen Attending MD:: DON MORAES MD, Procedure Date: 08/27/2020 12:03 PM Date of : 1965 Age: 55 Admit Type: Outpatient Gender: Female Room: [facility] 05 Referring MD: Neal Conley MD Exam Type: Colonoscopy Indications: Screening for colorectal malignant neoplasm Medications: Monitored Anesthesia Care Procedure: Informed consent was obtained from the patient after discussion of the indications, limitations, alternatives, benefits, and risks of the procedure. Risks specifically discussed include but are not limited to medication reactions, missed lesions, bleeding, perforation, or the need for emergentsurgery. Throughout the procedure, the patient's bloodpressure, pulse, end-tidal CO2, and oxygen saturations were monitored continuously. The Olympus pediatric variable [id number]-[id number] #3 was introduced through the anus and advanced tothe cecum, identified by appendiceal orifice andileocecal valve. The colonoscopy was performed without difficulty. The patient tolerated the procedurewell. The quality of the bowel preparation was excellent.The quality of the bowel preparation was evaluated using the BBPS (Argyle Bowel Preparation Scale) withscores of: Right Colon = 3, Transverse Colon = 3 and Left Colon = 3 (entire mucosa seen well with no residual staining, small fragments of stool or opaqueliquid). The total BBPS score equals 9. Complications: No immediate complications. Estimated blood loss: Minimal. Findings: Hemorrhoids were found on perianal exam. A 3 mm polyp was found in the sigmoid colon. Thepolyp was sessile. The polyp was removed with a coldsnare. Resection and retrieval were complete. A few medium-mouthed diverticula were found in the ascending colon. Internal hemorrhoids were found during retroflexion. The hemorrhoids were mild. The exam was otherwise normal throughout theexamined colon. Impression: - Hemorrhoids found on perianal exam. - One 3 mm polyp in the sigmoid colon, removed witha cold snare. Resected and retrieved. - Diverticulosis in the ascending colon. - Internal hemorrhoids. Recommendation: - Discharge patient to home. - Await pathology results. DON MORAES MD, 08/27/2020 12:28:53 PM This report has been signed electronically. Number of Addenda: 0 Note Initiated On: 08/27/2020 12:03 PM Procedure Code(s): --- Professional --- 17456, Colonoscopy, flexible; with removal of tumor(s), polyp(s), or other lesion(s) by snare technique --- Technical --- 18172, Colonoscopy, flexible; with removal of tumor(s), polyp(s), or other lesion(s) by snare technique Diagnosis Code(s): --- Professional --- Z12.11, Encounter for screening for malignantneoplasm of colon K64.8, Other hemorrhoids D12.5, Benign neoplasm of sigmoid colon K57.30, Diverticulosis of large intestine without perforation or abscess without bleeding --- Technical --- Z12.11, Encounter for screening for malignantneoplasm of colon K64.8, Other hemorrhoids D12.5, Benign neoplasm of sigmoid colon K57.30, Diverticulosis of large intestine without perforation or abscess without bleeding CPT copyright 2018 [employer]. All rights reserved. The codes documented in this report are preliminary and upon sfdc solution architect reviewmay be revised to meet current compliance requirements. Procedure Date: 08/27/2020 12:03:[address] [place] [id number] Neal Conley MD GI PROCEDURE ORDER TONY Final Result from Last 3 Months or Most Recently Relevant to Health Maintenance Insurance [facility] EPO [place] BL[place] [facility] PPO EPO BLUE [facility] PPO [place]PO [place] E[place] Care Teams Mill Recorder Relationship Specialty Start Date End Date Neal Diop MD [address] [place] [id number] [email or web address] PCP - General Family Medicine 09/13/23 Gricel Jara MBBS [email or web address] Medical Oncology 08/16/23 Additional Source Comments The information contained in this document represents components of the legal health record. It is not the complete legal health record.[facility]
--- OUTSIDE RECORDS SUMMARY | 2025-01-29 12:50 | XMS_ITS | Encounter Summary ---
Author Organization [facility] Address [address] [facility] [address] [place] [address] Phone Care Team Providers Care Preassembler And Inspector Name Role Phone Neal Diop MD Primary Care Prov ider Gricel Jara MBBS Unavailable [phone] Neal Diop MD Primary Care Prov ider Reason for Referral * MRI/CAT Scan - Closed Specialty Diagnoses / Procedures Referred By Contac t Referred To Contact Radiology Diagnoses Postnasal drip Chronic cough Perennial allergic rhinitis Procedures CT Face CHG CT SCAN,MAXILLOFACIAL AREA,W/O CONTRAST CHG CT SCAN, FACE/JAW CONTRAST CHG CT SCANS FACE/JAW COMBO Jeanie Long PA-C Phone: tel: fax: [email or web address] Referral ID Status Reason Start Date Expiration Date Visits Re quested Visits Authorized [id number] Closed 06/08/2023 08/06/2023 1 1 Encounter Details Date Type Department Care Team (Late st Contact Info) Description 06/11/2023 Transcribe Orders Virtual Department 30 [place] [address] Jeanie Long PA-C [address] [place] [id number] [email or web address] Postnasal drip (Primary Dx); Chronic cough; Perennial allergic rhinitis Social History Tobacco Use Types Packs/Day Years [...] Info) Description 2026 2:00 PM EST Telemedicine [facility] [place] [address] [facility], 5th Floor, [address] [place] [id number] Pj Tinoco MD, MPH [address] [facility] [address] [place] [address] [email or web address] documented as of this encounter Results * CT FACE (SINUS) WITHOUT CONTRAST (07/17/2023 5:29 PM EDT) Anatomical Region Laterality Modality Face Computed Tomogra phy 07/20/2023 4:26 PM EDT Impressions 07/20/2023 4:41 PM EDT 1. Mild mucosal thickening in the left maxillary sinus and minimally within the right maxillary sinus. 2. Mild-moderate nasal deviation to the left. Narrative 07/20/2023 4:[address] FACE (SINUS) WITHOUT CONTRAST Referring clinician's provided indication for this examination in [facility]: Outside Radiology Order; Postnasal drip// Chronic cough// Perennial allergic rhinitis TECHNIQUE: Multidetector-row CT of the sinuses was performed without intravenous contrast using tailored dose modulation techniques. Images were reconstructed in the axial, coronal, and sagittal planes. COMPARISON: None. FINDINGS: Frontal sinuses and frontoethmoidal junctions: Clear. Anterior and posterior ethmoid air cells: Clear. Maxillary sinuses and infundibula: Minimal mucosal thickening in the right maxillary sinus. The ostiomeatal complex is patent. Mild mucosal thickening in the inferior aspect of the left maxillary sinus. The ostiomeatal complex is patent. Sphenoid sinuses and sphenoethmoidal recesses: Clear. Nasal cavity: Mild-moderate nasal deviation to the left. Hypertrophy of the middle and inferior nasal turbinates on the right. The nasal passages are patent. Imaged maxillary teeth: No periapical lucencies. Mastoid air cells and middle ear cavities: Clear. Temporomandibular joints: Normal. No significant degenerative remodeling. Brain: Images of the brain parenchyma are not of diagnostic quality for the soft tissues. No focal abnormality is visible with this technique. Orbits and globes: No abnormalities are demonstrated. Procedure Note Zhao Rice MD - 07/20/2023 CT FACE (SINUS) WITHOUT CONTRAST Referring clinician's provided indication for this examination in [facility]:Outside Radiology Order; Postnasal drip// Chronic cough// Perennialallergic rhinitis TECHNIQUE: Multidetector-row CT of the sinuses was performed withoutintravenous contrast using tailored dose modulation techniques. Imageswere reconstructed in the axial, coronal, and sagittal planes. COMPARISON: None. FINDINGS: Frontal sinuses and frontoethmoidal junctions: Clear. Anterior and posterior ethmoid air cells: Clear. Maxillary sinuses and infundibula: Minimal mucosal thickening in the rightmaxillary sinus. The ostiomeatal complex is patent. Mild mucosalthickening in the inferior aspect of the left maxillary sinus. Theostiomeatal complex is patent. Sphenoid sinuses and sphenoethmoidal recesses: Clear. Nasal cavity: Mild-moderate nasal deviation to the left. Hypertrophy ofthe middle and inferior nasal turbinates on the right. The nasal passagesare patent. Imaged maxillary teeth: No periapical lucencies. Mastoid air cells and middle ear cavities: Clear. Temporomandibular joints: Normal. No significant degenerativeremodeling. Brain: Images of the brain parenchyma are not of diagnostic quality forthe soft tissues. No focal abnormality is visible with this technique. Orbits and globes: No abnormalities are demonstrated. IMPRESSION: 1. Mild mucosal thickening in the left maxillary sinus and minimallywithin the right maxillary sinus. 2. Mild-moderate nasal deviation to the left. Jeanie Long PA-C IMG CT HEAD/NECK Final R esult documented in this encounter Visit Diagnoses Diagnosis Postnasal drip- Primary Chronic cough Cough Perennial allergic rhinitis Allergic rhinitis, cause unspecified Postnasal drip Chronic cough Cough Perennial allergic rhinitis Allergic rhinitis, cause unspecified documented in this encounter Care Teams Preassembler And Inspector Relationship Specialty Start Date End Date Neal Diop MD PCP - General Family Medicine 08/27/20 4 Neal Diop MD [address] [place] [id number] PCP - General Family Medicine 09/13/23 Gricel Jara MBBS [email or web address] Medical Oncology 08/16/23 documented as of this encounter Additional Source Comments The information contained in this document represents components of the legal health record. It is not the complete legal health record.[facility]
--- OUTSIDE RECORDS SUMMARY | 2025-01-29 12:50 | XMS_ITS | Encounter Summary ---
Author Organization [facility] Address [address] [facility] [address] [place] [phone] Phone Care Team Providers Care City Attorney Name Role Phone Neal Diop MD Primary Care Prov ider Gricel Jara MBBS Unavailable [phone] Neal Diop MD Primary Care Prov ider Encounter Details Date Type Department Care Team (Late st Contact Info) Description 09/02/2022 Transcribe Orders Virtual Department 30 [place] [address] Neal Diop MD [address] [place] [phone] [email or web address] Encounter for screening for osteoporosis (Primary Dx) Social History Tobacco Use Types Packs/Day Years Used Date Smoking Tobacco: Never Smokeless Tobacco: Never Alcohol Use Standard Drinks/Week Comments Never 0 (1 standard drink = 0.6 oz pur e alcohol) Education Answer Date Recorded Are you interested in more education? Not on suhail e 08/26/2022 Are you concerned about learning? Not on file 08/26/2022 No 08/26/2022 No 08/26/2022 Comments No Sex and Gender Information Value Date Recorded Sex Assigned at Female 09/17/2018 12:22 PM EDT Legal Sex Female 9:38 PM EDT Gender Identity Female 09/17/2018 12:22 PM EDT Sexual Orientation Straight 09/17/2018 12 :22 PM EDT documented as of this encounter Plan of Treatment Upcoming Encounters Date Type Department Care Team (Late st Contact Info) Description 2026 2:00 PM EST Telemedicine [facility] [place] & Transplantation 32 [facility], 5th Floor, [address] [place] [address] Pj Tinoco MD, MPH [address] [facility] [address] [place] [address] [email or web address] documented as of this encounter Results * BD DXA AXIAL (SPINE) WITH HIP (01/24/2023 1:33 PM EDT) Anatomical Region Laterality Modality Bone Density Bone Density 01/24/2023 2:32 PM EDT Impressions 01/25/2023 6:54 PM EDT Osteoporosis based upon bone mineral density in the lumbar spine and both femoral necks. ATTESTATION: I, Mello Salazar as teaching physician, have reviewed the images for this case and if necessary edited the report originally created by Rob Rolle. Narrative 01/25/2023 6:54 PM EDT This is a 57-year-old postmenopausal female presenting for a screening exam. Evaluation of the lumbar spine and both hips is obtained and appears technically adequate. The lumbar spine from L1 through L4 discloses a total bone mineral density of 0.717 g/cm2 T-score: -3.0 Z-Score: -1.9 This is in the osteoporosis range. The right hip (total) has a total bone mineral density of 0.676 g/cm2 T-score: -2.2 Z-Score: -1.5 This is in the osteopenia range. The right hip (neck) has a total bone mineral density of 0.535 g/cm2 T-score: -2.8 Z-Score: -1.7 The left hip (total) has a total bone mineral density of 0.708 g/cm2 T-score: -1.9. Z-Score: -1.2 This is in the osteopenia range. The left hip (neck) has a total bone mineral density of 0.558 g/cm2 T-score: -2.6. Z-Score: -1.5 FRAX: Not reported because some T-scores for Spine Total, Hip Total, or Femoral Neck are at or below -2.5. Procedure Note Mello Salazar MD - 01/25/2023 This is a 57-year-old postmenopausal female presenting for ascreening exam. Evaluation of the lumbar spine and both hips is obtained and appearstechnically adequate. The lumbar spine from L1 through L4 discloses a total bone mineral densityof 0.717 g/cm2 T-score: -3.0 Z-Score: -1.9 This is in the osteoporosis range. The right hip (total) has a total bone mineral density of 0.676 g/cm2 T-score: -2.2 Z-Score: -1.5 This is in the osteopenia range. The right hip (neck) has a total bone mineral density of 0.535 g/cm2 T-score: -2.8 Z-Score: -1.7 The left hip (total) has a total bone mineral density of 0.708 g/cm2 T-score: -1.9. Z-Score: -1.2 This is in the osteopenia range. The left hip (neck) has a total bone mineral density of 0.558 g/cm2 T-score: -2.6. Z-Score: -1.5 FRAX: Not reported because some T-scores for Spine Total, Hip Total, orFemoral Neck are at or below -2.5. IMPRESSION: Osteoporosis based upon bone mineral density in the lumbar spine and bothfemoral necks. ATTESTATION: I, Mello Salazar as teaching physician, have reviewed theimages for this case and if necessary edited the report originally createdby Rob Rolle. Neal NEGRON BD BONE DENSIT Y DEXA Final Result documented in this encounter Visit Diagnoses Diagnosis Encounter for screening for osteoporosis- Primary Encounter for screening for osteoporosis documented in this encounter Care Teams City Attorney Relationship Specialty Start Date End Date Neal Diop MD [email or web address] PCP - General Family Medicine 08/27/20 4 Neal Diop MD [address] [place] [address] [email or web address] PCP - General Family Medicine 09/13/23 Gricel Jara MBBS [email or web address] Medical Oncology 08/16/23 documented as of this encounter Additional Source Comments The information contained in this document represents components of the legal health record. It is not the complete legal health record.[facility]
--- OUTSIDE RECORDS SUMMARY | 2025-01-29 12:50 | XMS_ITS | Encounter Summary ---
Author Organization [facility] Address [address] [employer] [facility] [address] [place] [address] Phone Care Team Providers Care Precision Agriculture Specialist Name Role Phone Gricel JaraBS Unavailable [phone] Neal Diop MD Primary Care Prov ider Encounter Details Date Type Department Care Team (Latest Contact Info) Description 01/04/2024 Transcribe Orders Virtual Department [address] [place] [address] Neri Pena MD [address] [place] [phone] [email or web address] Age-related osteoporosis without current pathological fracture (Primary Dx) Social History Tobacco Use Types [...] Info) Description 2026 2:00 PM EST Telemedicine [facility] [place] Heart Failure & Transplantation [address] [facility], 5th Floor, [address] [place] [address] Pj Tinoco MD, MPH [address] [facility] [address] [place] [address] [email or web address] documented as of this encounter Results * BD DXA AXIAL (SPINE) WITH HIP (01/06/2025 10:18 AM EDT) Anatomical Region Laterality Modality Bone Density Bone Density 01/06/2025 10:1 8 AM EDT Impressions 01/07/2025 10:06 AM EDT Interpretation: Osteoporosis. Narrative 01/07/2025 10:06 AM EDT Referred By: NERI PENA Indications: Osteoporosis Scanner: [employer] A with serial# of [id number] located at [facility] Bone Density Scan (DXA) 01/06/25 Details of [...] -2.5), or Osteoporosis (T-score <= -2.5). At [facility], T-scores are compared to peak bone density [...] Vladimir Ya MD - 01/07/2025 Referred By: NERI PENA Indications: Osteoporosis Scanner: [employer] A with serial# of [id number] located at [facility] Bone Density Scan (DXA) 01/06/25 Details of prior DXA scans are available by clicking View Full Report BMD T- Z- Skeletal Site gm/cm2 score score BMD Change Since Prior Scan ------ ----- PA Spine (L1-L4) 0.733 -2.90 -1.60 0.016 (stable) since01/24/2023 Total Hip (Right) 0.695 -2.00 -1.20 0.019 (stable) since01/24/2023 Femoral Neck (Right) 0.538 -2.80 -1.60 0.003 (stable) 01/24/2023 ------ ----- * Denotes significant change when [...] -2.5), or Osteoporosis (T-score <= -2.5). At [facility], T-scores are compared to peak bone density [...] bone density results. IMPRESSION: Interpretation: Osteoporosis. us Neri Pena MD IMG BD BONE DENSITY DEXA Fi nal Result documented in this encounter Visit Diagnoses Diagnosis Age-related osteoporosis without current pathological fracture- Primary Age-related osteoporosis without current pathological fracture documented in this encounter Care Teams Precision Agriculture Specialist Relationship Specialty Start Date End Date Neal Diop MD [address] [place] [address] PCP - General Family Medicine 09/13/23 Gricel Jara MBBS [email or web address] Medical Oncology 08/16/23 documented as of this encounter Additional Source Comments The information contained in this document represents components of the legal health record. It is not the complete legal health record.[facility]
--- OUTSIDE RECORDS SUMMARY | 2025-01-29 12:50 | XMS_ITS | Encounter Summary ---
Author Organization [facility] Address [address] [facility] [address] [place] [address] Phone Care Team Providers Care Stationary Fireman Name Role Phone Neal Diop MD Primary Care Prov ider Gricel Jara MBBS Unavailable [phone] Neal Diop MD Primary Care Prov ider Encounter Details Date Type Department Care Team (Late st Contact Info) Description 08/27/2020 Procedure Pass [facility] Endoscopy Admitting Dept Virtual Department 30 [place] [address] Social History Tobacco Use Types Packs/Day Years Used Date Smoking Tobacco: Never Smokeless Tobacco: Never Alcohol Use Standard Drinks/Week Comments Never 0 (1 standard drink = 0.6 oz pur e alcohol) Comments No Sex and Gender Information Value Date Recorded Sex Assigned at Female 09/17/2018 12:22 PM EDT Legal Sex Female 9:38 PM EDT Gender Identity Female 09/17/2018 12:22 PM EDT Sexual Orientation Straight 09/17/2018 12 :22 PM EDT documented as of this encounter Plan of Treatment Upcoming Encounters Date Type Department Care Team (Late Contact Info) Description 2026 2:00 PM EST Telemedicine [facility] [place] Heart Failure & Transplantation [address] [facility], 5th Floor, [address] [place] [address] Pj Tinoco MD, MPH [address] [place] [address] [email or web address] documented as of this encounter Visit Diagnoses Not on filedocumented in this encounter Additional Health Concerns Infection Onset Date 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 per Infection Control as part of historical infection status reconciliation 04/13/2010 04/13/2010 07/18/19 22 1:36 AM EDT documented as of this encounter Care Teams Stationary Fireman Relationship Specialty Start Date End Date Neal Diop MD [email or web address] PCP - General Family Medicine 08/27/20 4 Neal Diop MD [address] [place] [address] PCP - General Family Medicine 09/13/23 Gricel Jara MBBS [email or web address] Medical Oncology 08/16/23 documented as of this encounter Additional Source Comments The information contained in this document represents components of the legal health record. It is not the complete legal health record.[facility]
--- OUTSIDE RECORDS SUMMARY | 2025-01-29 12:50 | XMS_ITS | Encounter Summary ---
Author Organization [facility] Address [address] [place] [address] Phone Care Team Providers Care Crm Dynamics Developer Name Role Phone Gricel Jara Unavailable [phone] Neal Diop MD Primary Care Prov ider Encounter Details Date Type Department Care Team (Late st Contact Info) Description 04/02/2024 Procedure Pass [facility] Echo Lab [address] [place] [address] Social History Tobacco Use Types Packs/Day Years [...] [facility] [place] Heart Failure & Transplantation 32 [facility], 5th Floor, [address] [place] [address] Pj Tinoco MD, MPH [address] [place] [address] [email or web address] documented as of this encounter Visit Diagnoses Not on filedocumented in this encounter Care Teams Crm Dynamics Developer Relationship Specialty Start Date End Date Neal Diop MD [address] [place] [address] [email or web address] PCP - General Family Medicine 09/13/23 Gricel Jara MBBS [email or web address] Medical Oncology 08/16/23 documented as of this encounter Additional Source Comments The information contained in this document represents components of the legal health record. It is not the complete legal health record.[facility]
== END 2025-01-29 11:55 | disposition home or self-care (01) ==
LOC: HO.HPS 11:14
PROVIDERS: PCP Family Medicine; Visit Provider Hospitalist
DX: R05.3 Chronic cough (principal); J31.0 Chronic rhinitis; R05.8 Other specified cough; H60.543 Acute eczematoid otitis externa, bilateral; T78.40XD Allergy, unspecified, subsequent encounter; M35.00 Sjogren syndrome, unspecified
CPT/HCPCS: 99214

== ENCOUNTER 2025-01-29 11:13 | Outpatient (REF) | payer BC, SELFPAY ==
[2025-02-04 05:59] LABS: Class Alternaria alternata 0; Class Aspergillus fumigatus 0; Class Bermuda Grass 0/1; Class Birch 2; Class Cat Dander 0; Class Cladosporium herbarum 0; Class Cockroach 3; Class Common Ragweed 3; Class Cottonwood 0; Class Derm. pterony 2; Class Dermatophagoides farinae 2; Class Dog Dander 0; Class Elm 0; Class Maple Box Elder 2; Class Mountain Cedar 3; Class Mouse Urine Protein 0; Class Mugwort 3; Class Oak 0; Class Penicillium crysogenum 0; Class Rough Pigweed 0; Class Sheep Sorrel 0; Class Sycamore 0/1; Class Timothy Grass 2; Class Walnut Tree 0/1; Class White Ash 0/1; Class White Mulberry 0; D002 - IgE D farinae 1.96 kU/L; E001 - IgE Cat Dander <0.10 kU/L; E005 - IgE Dog Dander <0.10 kU/L; G006 - IgE Timothy Grass 2.00 kU/L; I006-IgE Cockroach, German 8.96 kU/L; M002 - IgE Cladosporium herbar <0.10 kU/L; M003 - IgE Aspergillus fumigat <0.10 kU/L; M006 - IgE Alternaria alternat <0.10 kU/L; T001 IgE Maple/Box Elder 1.18 kU/L; T006 - IgE Cedar, Mountain 9.45 kU/L; T007 - IgE Oak, White <0.10 kU/L; T008 IgE Elm, American <0.10 kU/L; T010 - IgE Walnut 0.24 kU/L; T011 - IgE Maple Leaf Sycamore 0.10 kU/L; T014 - IgE Cottonwood <0.10 kU/L; T015 - IgE Ash, White 0.13 kU/L; T070 - IgE White Mulberry <0.10 kU/L; W001 - IgE Ragweed, Short 7.09 kU/L; W006 - IgE Mugwort 4.47 kU/L; W014 IgE Pigweed, Common <0.10 kU/L; W018 IgE Sheep Sorrel <0.10 kU/L
== END 2025-01-29 11:14 | disposition home or self-care (01) ==
LOC: HO.LAB 11:13
PROVIDERS: PCP Family Medicine; Visit Provider Hospitalist
DX: R05.3 Chronic cough (principal); J31.0 Chronic rhinitis; H60.543 Acute eczematoid otitis externa, bilateral; T78.40XD Allergy, unspecified, subsequent encounter; M35.00 Sjogren syndrome, unspecified
CPT/HCPCS: 36415; 82785; 86003